=== PATIENT | male | born 1990 | race African-American/Black ===

== ENCOUNTER 2017-08-13 16:26 | Emergency (ER) | payer OTHER ==
[~2017-08-13] VITALS: Ht 182.9 cm; Wt 91.6 kg
[~2017-08-13 16:26] MED LIST: NAPROSYN500 MG PO; NOHOMEMEDS
[2017-08-13] MEDS ORDERED: PEN-VEE K,VEET500 MG PO (16:57)
[2017-08-13] MEDS ORDERED: MOTRIN800 MG PO (16:57)
[2017-08-13 17:17] VITALS: BP 112/74
== END 2017-08-13 16:58 | disposition home or self-care (01) ==
LOC: EME 16:26
DX: K08.89 Other specified disorders of teeth and supporting structures (principal); F17.200 Nicotine dependence, unspecified, uncomplicated; D57.1 Sickle-cell disease without crisis
CPT/HCPCS: 99281; 99283